=== PATIENT | female | born 1955 | race American Indian/Alaskan Native ===

== ENCOUNTER 2020-02-21 15:03 | Outpatient (CLI) | payer MEDICARE ==
--- NOTE | 2020-02-21 16:45 | XRay Report ---
CLINICAL DATA: PAIN IN RIGHT ANKLE AND JOINTS OF RIGHT FOOT TECHNICAL DATA: Four views of the ankle were obtained in the AP, lateral, and obliques. FINDINGS: There is no acute fracture, dislocation, or subluxation. There is no joint effusion or soft tissue sw elling. The tibial plafond, ankle mortise, and talar dome are intact. IMPRESSION: No acute radiographic abnormality. Signer Name: Ghassan Henry MD Signed: 02/21/2020 4:40 PM Workstation Name: [id number]
--- NOTE | 2020-02-21 16:48 | XRay Report ---
HISTORY:PAIN IN RIGHT ANKLE AND JOINTS OF RIGHT FOOT COMPARISON: None. TECHNIQUE: AP standing knees FINDINGS: Bones: No fracture or dislocation. Joint spaces: Minimum degenerative of the medial aspect of the femoral tibial articulation is noted w ith very small osteophyte formation Soft tissues: No significant abnormality. Additional findings: None. IMPRESSION: 1. Mild degenerative changes both knees as noted Signer Name: Ghassan Henry MD Signed: 02/21/2020 4:44 PM Workstation Name: [id number]
== END 2020-02-21 15:04 | disposition home or self-care (01) ==
LOC: XRAY 15:03
PROVIDERS: ATTEND Orthopaedic Surgery
DX: M17.0 Bilateral primary osteoarthritis of knee (principal); M25.571 Pain in right ankle and joints of right foot
CPT/HCPCS: 73565

== ENCOUNTER 2020-03-23 12:50 | Outpatient (CLI) | payer MEDICARE ==
--- NOTE | 2020-03-23 14:22 | Magnetic Resonance Report ---
MRI LEFT KNEE WITHOUT CONTRAST INDICATION / CLINICAL INFORMATION: Left knee pain. COMPARISON: Bilateral knee x-ray 02/21/2020 TECHNIQUE: Multiplanar, multisequence MR images were obtained. FINDINGS: ACL: No significant abnormality. PCL: No significant abnormality. DISTAL QUADRICEPS TENDON: No significant abnormality. PATELLAR TENDON: No significant abnormality. MEDIAL MENISCUS: A complex tear extending to both articular surfaces is identified in the posterior h orn of the medial meniscus. LATERAL MENISCUS: No significant abnormality. POSTEROLATERAL CORNER: No significant abnormality. MCL: No significant abnormality. LCL: No significant abnormality. DISTAL IT BAND: No significant abnormality. PATELLOFEMORAL ALIGNMENT: No significant abnormality. ARTICULAR CARTILAGE: Mild diffuse chondrosis. No focal cartilage defect. JOINT SPACE: Trace to small joint effusion is identified. A tiny popliteal cyst measures 1.3 x 0.5 x 1.7 cm. No intra-articular bodies. BONES: No significant bone marrow edema. No fracture. No osseous lesion. Mild medial compartment join t space narrowing and mild tibial spine spurring is identified. SUBCUTANEOUS SOFT TISSUES: No significant abnormality. ADDITIONAL FINDINGS: None. IMPRESSION: Complex tear in the posterior horn of the medial meniscus. Trace joint effusion and small popliteal cyst. Mild osteoarthritic changes. Signer Name: Albert Keller Jr, MD Signed: 03/23/2020 2:18 PM Workstation Name: [id number]
== END 2020-03-23 12:51 | disposition home or self-care (01) ==
LOC: MRI 12:50
PROVIDERS: ATTEND Orthopaedic Surgery
DX: S83.242A Other tear of medial meniscus, current injury, left knee, initial encounter (principal); M25.569 Pain in unspecified knee; X58.XXXA Exposure to other specified factors, initial encounter; Y93.9 Activity, unspecified; Y92.89 Other specified places as the place of occurrence of the external cause; Y99.8 Other external cause status
CPT/HCPCS: 73721

== ENCOUNTER 2020-04-18 07:24 | Day surgery (SDC) | payer MEDICARE ==
[2020-04-13 13:23] LABS: BUN/Creatinine Ratio 11; Blood Urea Nitrogen 11 mg/dL (7-17); Calcium 9.4 mg/dL (8.4-10.2); Hemolysis Index 18
[~2020-04-18 07:24] MED LIST: ACETAMINOPHEN 500 MG TAB PO SCH; GABAPENTIN 300 MG CAP PO NR; LACTATED RINGERS 1,000 ML IV SCH; MIDAZOLAM 2 MG/2 ML INJ IV NR; ceFAZolin/Water 2 GM/20 ML 2 GM/20 ML SYRINGE IV NR
--- NOTE | 2020-04-18 10:13 | Anesthesia Day of Surgery ---
Anesthesia Day of Surgery - Day of Surgery Patient Examined: Yes Patient H&P Reviewed: Yes Patient is NPO: Yes Beta Blockers: No Cardiac Clearance: No Pulmonary Clearance: No Francesco's Test: N/A
[2020-04-18] MEDS ORDERED: fentaNYL 100 MCG/2 ML INJ IV PRN (10:15)
[2020-04-18] MEDS ORDERED: MEPERIDINE 25 MG/1 ML INJ IV PRN (10:15)
[2020-04-18] MEDS ORDERED: NALOXONE 0.4 MG/1 ML INJ IV PRN (10:15)
[2020-04-18] MEDS ORDERED: oxyCODONE /ACETAMINOPHEN 5-325MG TAB PO PRN (10:15)
[2020-04-18] MEDS ORDERED: ONDANSETRON 4 MG/2 ML INJ IV PRN (10:15)
--- NOTE | 2020-04-18 10:15 | Anesthesia Consultation ---
Anesthesia Consult and Med Hx Date of service: 04/18/20 - Airway Anesthetic Teeth Evaluation: Poor ROM Head & Neck: Adequate Mental/Hyoid Distance: Adequate Mallampati Class: Class I Intubation Access Assessment: Good - Pulmonary Exam CTA: Yes - Cardiac Exam Cardiac Exam: RRR - Pre-Operative Health Status ASA Pre-Surgery Classification: ASA3 Proposed Anesthetic Plan: General - Pulmonary Hx Smoking: Yes (1 PPD & CIGARS X 40 YRS) Hx Sleep Apnea: No (SOULEYMANE PRE SCREEN LOW RISK) - Cardiovascular System Hx Hypertension: Yes (X 10 YRS) Hx Heart Attack/AMI: No Hx Angina: No - Central Nervous System Hx Back Pain: Yes Hx Psychiatric Problems: No (NO MEDS) - Gastrointestinal Hx Gastroesophageal Reflux Disease: Yes (controlled) - Endocrine Hx Insulin Dependent Diabetes: No Hx Non-Insulin Dependent Diabetes: No Hx Thyroid Disease: No (dr karimi per pt, no meds) - Other Systems Hx Cancer: No - Additional Comments Anesthesia Medical History Comments: colectomy, back sx
[2020-04-18] MEDS ORDERED: methylPREDNISolone ACETATE 40 MG/1 ML INJ ONE (11:05)
[2020-04-18] MEDS ORDERED: BUPIVACAINE-EPINEPHRINE/PF 0.5%-1:200,000 (30 ML) VIAL INFILTRATI ONE ×2 (11:06→13:34)
[2020-04-18] MEDS ORDERED: HYDROmorphone 1 MG/1 ML INJ ONE ×2 (12:26→14:04)
[2020-04-18] MEDS ORDERED: ONDANSETRON 4 MG/2 ML INJ ONE (12:26)
[2020-04-18] MEDS ORDERED: LIDOCAINE MPF (2%) 20 MG/1 ML VIAL 5 ML ONE (12:26)
[2020-04-18] MEDS ORDERED: propofoL 200 MG/20 ML VIAL IV ONE (12:27)
[2020-04-18] MEDS ORDERED: methylPREDNISolone ACETATE 40 MG/1 ML INJ INTRA-ARTI ONE (13:35)
[2020-04-18] MEDS ORDERED: dexAMETHasone 20 MG/5 ML VIAL ONE (13:39)
[2020-04-18] MEDS ORDERED: SODIUM CHLORIDE 0.9% IRRIG SOLN 2000 ML IR ONE (13:39)
--- NOTE | 2020-04-18 13:52 | Procedure Note ---
Date of procedure: 04/18/20 Pre-op diagnosis: Left knee pain Post-op diagnosis: same Procedure: Arthroscopy [left] knee partial medial meniscectomy and abrasion chondroplasty medial compartment Procedure The patient was brought to the OR and placed on the OR table in supine position following induction and intubation by anesthesia the patient's [left] lower extremity was prepped and draped in the usual sterile manner. A timeout procedure was done to identify the patient and the correct operative site. 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 The arthroscopic shaver was introduced into the knee joint nexy the articular cartilage was then debrided back to healthy-appearing cartilage tissue followed by debridement of the posterior horn of the medial meniscus using a combination of biting forceps and the 4.0 shaver again care was taken to remove only tissue did appear to flap in and out of the knee joint following debridement the knee was copiously irrigated with saline solution the arthroscope was removed and the stab wound were repaired A mixture of Depo-Medrol and Marcaine was injected followed by placing routine postoperative dressings and Ezra wraps to the thigh in the area the patient tolerated the procedure there were no complications he was sent to postanesthesia recovery in stable condition Anesthesia: GETA Surgeon: RUBY ANNE Estimated blood loss: minimal Pathology: none Condition: stable Disposition: PACU
[2020-04-18] MEDS ORDERED: HYDROmorphone 1 MG/1 ML INJ IV PRN (14:14)
--- NOTE | 2020-04-18 16:47 | Post Anesthesia Evaluation ---
- Post Anesthesia Evaluation Patient Participated: Yes Airway Patent: Yes Stable Respiratory Function: Yes Nausea/Vomiting: No Temp > 96.8F: Yes Pain Manageable: Yes Adequeate Hydration: Yes Anesthesia Complications: No
[2020-04-18 20:07] VITALS: BP 142/72
== END 2020-04-18 07:25 | disposition home or self-care (01) ==
LOC: OR 07:24
PROVIDERS: ATTEND Orthopaedic Surgery
DX: M25.562 Pain in left knee (principal); S83.201A Bucket-handle tear of unspecified meniscus, current injury, left knee, initial encounter; Z20.828 Contact with and (suspected) exposure to other viral communicable diseases; F17.210 Nicotine dependence, cigarettes, uncomplicated; E78.00 Pure hypercholesterolemia, unspecified; I10 Essential (primary) hypertension; K21.9 Gastro-esophageal reflux disease without esophagitis; F31.9 Bipolar disorder, unspecified; F41.9 Anxiety disorder, unspecified; Z79.899 Other long term (current) drug therapy; Z79.82 Long term (current) use of aspirin; Z90.49 Acquired absence of other specified parts of digestive tract; Z98.890 Other specified postprocedural states; X58.XXXA Exposure to other specified factors, initial encounter; Y93.89 Activity, other specified; Y92.89 Other specified places as the place of occurrence of the external cause; Y99.8 Other external cause status
CPT/HCPCS: 29881; 36415; 80048; A4217; J0690; J1030; J1100; J1170; J2250; J2405; J2704; J7120; U0003